=== PATIENT | male | born 1970 | race Two or more races ===

== ENCOUNTER 2017-10-01 17:08 | Emergency (ER) | payer OTHER ==
[~2017-10-01] VITALS: Ht 180.3 cm; Wt 76.2 kg
[~2017-10-01 17:08] MED LIST: DICLOFENAC SODI50 MG PO; NORFLEX100MG PO; PROVENTIL3 ML/2.5 M IH
== END 2017-10-01 19:30 | disposition home or self-care (01) ==
LOC: ER 17:08
DX: M94.0 Chondrocostal junction syndrome [Tietze] (principal); M79.1 Myalgia

== ENCOUNTER 2018-07-04 16:38 | Emergency (ER) | payer OTHER ==
[~2018-07-04] VITALS: Ht 180.3 cm; Wt 74.8 kg
== END 2018-07-04 23:04 | disposition home or self-care (01) ==
LOC: ER 16:38
DX: M79.18 Myalgia, other site (principal); M54.2 Cervicalgia

== ENCOUNTER 2022-02-16 16:54 | Emergency (ER) | payer OTHER ==
[~2022-02-16] VITALS: Ht 180.3 cm; Wt 76.2 kg
== END 2022-02-16 20:05 | disposition home or self-care (01) ==
LOC: ER 16:54
DX: R00.2 Palpitations (principal)

== ENCOUNTER 2024-05-12 09:11 | Emergency (ER) | payer OTHER ==
[~2024-05-12] VITALS: Ht 180.3 cm; Wt 77.1 kg
[2024-05-12] MEDS ORDERED: KETOROLAC TROMETHAMINE 60 MG VIAL IM STA (10:45)
[2024-05-12] MEDS ORDERED: KETOROLAC TROMETHAMINE 60 MG VIAL IM ONE (12:22)
[2024-05-12 12:39] LABS: HEMATOCRIT 45.6 % (39.0-48.0); HEMOGLOBIN 15.5 g/dL (13-16.00); MEAN CELL VOLUME 87.6 fL (80.0-100.00); MEAN CORPUSCULAR HEMOGLOBIN 29.7 pg (27.00-32.0); MEAN CORPUSCULAR HGB CONC 33.9 g/dl (32.0-36.0); PLATELET COUNT 203 K/uL (150-450); RED CELL DISTRIBUTION WIDTH 14.6 % (11.5-14.5)
== END 2024-05-12 14:48 | disposition home or self-care (01) ==
LOC: ER 09:14
PROVIDERS: General Practice
DX: B34.9 Viral infection, unspecified (principal); Z20.822 Contact with and (suspected) exposure to COVID-19

== ENCOUNTER → 2025-02-13 | Emergency (ER) | payer OTHER ==
[~2025-02-13] VITALS: Ht 180.3 cm; Wt 77.1 kg
[~2025-02-13] MED LIST changes: +AMOX-CLAV 875-1 EACH PO; +DEXAMETHASONE SODIUM PHOSPHATE 4 MG/ML VIAL IM ONE; +DEXAMETHASONE SODIUM PHOSPHATE 4 MG/ML VIAL ONE; +DIPHENHYDRAMINE HCL 50 MG/ML VIAL 1ML IM ONE; +DIPHENHYDRAMINE HCL 50 MG/ML VIAL 1ML ONE; +MEDROLPACK PO; +ORPHENADRINE CITRATE 30 MG/ML AMPUL IM ONE; +ORPHENADRINE CITRATE 30 MG/ML AMPUL ONE
[2025-02-13 12:33] VITALS: BP 111/66; O2SAT 98
[2025-02-13 14:47] LABS: BASO % 0.5 % (0.1-1.2); EOS # 0.01 (0.04-0.54); EOS % 0.2 % (0.7-7.0); LYMPH # 1.18 (1.18-3.74); LYMPH % 17.8 % (19.3-53.1); MEAN PLATELET VOLUME 9.70 fl (9.4-12.4); MONO # 0.40 (0.24-0.82); MONO % 6.0 % (4.7-12.5); NEUT # 4.99 (1.56-6.13); NEUT % 75.3 % (34.0-71.1); RED CELL DISTRIBUTION WIDTH 12.9 % (11.6-14.4)
[2025-02-13 15:24] LABS: COVID-19 AG NEGATIVE (NEGATIVE)
[2025-02-13 15:28] LABS: BUN CREA RATIO 13.0 (7.0-25.0); CREATININE SERUM 1.04 mg/dL (0.70-1.30); GFR 74.7; GLUCOSE FASTING 87.0 mg/dL (65-100); OSMOLALITY SERUM 289.0 MOSM/KG (275-295)
== END | disposition home or self-care (01) ==
LOC: ER 12:21
PROVIDERS: General Practice
DX: J32.8 Other chronic sinusitis (principal); J06.9 Acute upper respiratory infection, unspecified; Z20.822 Contact with and (suspected) exposure to COVID-19